=== PATIENT | female | born 1965 | race Caucasian/White ===

== ENCOUNTER 2017-07-19 14:44 | Emergency (ER) | payer OTHER ==
[~2017-07-19] VITALS: Ht 170.2 cm; Wt 70.3 kg
[2017-07-19 15:00] VITALS: BP 130/72
[2017-07-19] MEDS ORDERED: IBUPROFEN 800 MG TAB PO ONE (16:15)
== END 2017-07-19 16:53 | disposition home or self-care (01) ==
LOC: ER 14:44
DX: S76.012A Strain of muscle, fascia and tendon of left hip, initial encounter (principal); S70.12XA Contusion of left thigh, initial encounter; W20.8XXA Other cause of strike by thrown, projected or falling object, initial encounter; Y93.89 Activity, other specified; Y92.89 Other specified places as the place of occurrence of the external cause; Y99.8 Other external cause status
CPT/HCPCS: 73502

== ENCOUNTER 2017-08-21 13:29 | Emergency (ER) | payer OTHER ==
[~2017-08-21] VITALS: Ht 167.6 cm; Wt 68.0 kg
[2017-08-21 13:50] VITALS: BP 131/74
[2017-08-21] MEDS ORDERED: KETOROLAC TROMETH 60MG/2ML VIAL IM ONE (16:00)
== END 2017-08-21 16:47 | disposition home or self-care (01) ==
LOC: ER 13:36
DX: M48.061 Spinal stenosis, lumbar region without neurogenic claudication (principal); M54.16 Radiculopathy, lumbar region; F17.210 Nicotine dependence, cigarettes, uncomplicated; Z91.041 Radiographic dye allergy status
CPT/HCPCS: 72131; 96372; 99284; J1885